=== PATIENT | male | born 1975 | race Caucasian/White ===

== ENCOUNTER → 2021-07-04 | Outpatient (CLI) | payer OTHER ==
--- NOTE | 2021-07-04 16:28 | RAD ---
EXAMINATION: Chest radiograph. VIEWS: Frontal and lateral views of the chest COMPARISON: None INDICATION:46 years, Male, recent pneumonia. FINDINGS: Normal cardiomediastinal silhouette. No focal consolidation. No pleural effusion or pneumothorax. No acute osseous process. IMPRESSION: No acute cardiopulmonary process. Electronically signed by: Kit Garnica DO (07/04/2021 4:25 PM) [facility]
== END ==
LOC: RAD 16:07
PROVIDERS: ATTEND Nurse Practitioner Family
DX: Z87.01 Personal history of pneumonia (recurrent) (principal)
CPT/HCPCS: 71046